=== PATIENT | female | born 1970 | race Caucasian/White ===

== ENCOUNTER → 2016-08-15 | Outpatient (CLI) | payer MEDICARE, MEDICAID ==
[~2016-08-15] MED LIST: ALLEGRA-D 12 H1 EACH PO; NASONEX17 GM NASLF; SINGULAIR10 MG PO; TRAVATAN Z2.5 ML EYEBOTH
== END | disposition short-term general hospital (02) ==
LOC: CLORTH 13:44
DX: Z47.89 Encounter for other orthopedic aftercare (principal); M25.612 Stiffness of left shoulder, not elsewhere classified

== ENCOUNTER → 2016-11-21 | Outpatient (CLI) | payer MEDICARE, MEDICAID | END | disposition short-term general hospital (02) | LOC: CLORTH 11-07 23:26 | DX: Z47.89 Encounter for other orthopedic aftercare (principal) ==